=== PATIENT | female | born 1950 | race Caucasian/White ===

== ENCOUNTER 2017-09-20 17:25 | Emergency (ER) | payer MEDICARE, MEDICAID ==
[~2017-09-20] VITALS: Ht 162.6 cm; Wt 74.8 kg
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
--- NOTE | 2017-09-20 17:40 | NUR ---
AT BEDSIDE FOR EVAL.
[2017-09-20] MEDS ORDERED: ACETAMINOPHEN 325 MG TABLET ONE (17:42)
--- NOTE | 2017-09-20 17:47 | NUR ---
IV ACCESS NOT REQUIRED PER DR. DUCKWORTH.
[2017-09-20] MEDS ORDERED: ACETAMINOPHEN 325 MG TABLET PO ONE (18:00)
[2017-09-20 18:02] LABS: BASOPHILS # (AUTO) 0.2 /CMM (0.0-0.2); BASOPHILS % (AUTO) 1.4 % (0.0-2.0); EOSINOPHILS % (AUTO) 0.5 % (0.0-6.0); HEMATOCRIT 48 % (33-45); HEMOGLOBIN 16.3 g/dL (11.5-14.8); LYMPHOCYTES # (AUTO) 3.2 /CMM (0.8-4.8); LYMPHOCYTES % (AUTO) 22.9 % (20.0-44.0); MEAN CORPUSCULAR HGB CONC 34 g/dl (31.0-36.0); MEAN CORPUSCULAR VOLUME 84 fL (82-100); MONOCYTES % (AUTO) 7.4 % (2.0-12.0); NEUTROPHILS # (AUTO) 9.4 /CMM (1.8-8.9); NEUTROPHILS % (AUTO) 67.8 % (43.0-81.0); PLATELET COUNT (AUTO) 245 /CMM (150-450); RDW COEFFICIENT OF VARIATION 13.3 (11.5-15.0); RED BLOOD CELL COUNT(AUTO) 5.72 MIL/uL (4.0-5.2); WHITE BLOOD COUNT (AUTO) 13.9 K/uL (4.3-11.0)
--- NOTE | 2017-09-20 18:10 | NUR ---
RECREATIONAL VEHICLE REPAIRER AT BEDSIDE.
[2017-09-20 18:11] LABS: CALCIUM, SERUM 9.9 mg/dL (8.5-10.1); CARBON DIOXIDE 23 mmol/L (21-32); CHLORIDE 99 mmol/L (98-107); CREATININE 1.1 mg/dL (0.6-1.3); GLUCOSE 157 mg/dL (74-106); SODIUM SERUM 135 mmol/L (136-145); UREA NITROGEN, BLOOD 30 mg/dL (7-18)
[2017-09-20 18:17] LABS: INR 0.89 (0.85-1.15)
[2017-09-20 18:20] LABS: TROPONIN I < 0.017 ng/mL (0.00-0.056)
--- NOTE | 2017-09-20 18:50 | NUR ---
PATIENT TAKEN TO CT VIA WHEELCHAIR.
[2017-09-20] MEDS ORDERED: KETOROLAC TROMETHAMINE INJ 60 MG/2 ML VIAL IM ONE ×2 (18:59→19:00)
[2017-09-20] MEDS ORDERED: HYDROCODONE/APAP 5/325MG 1 EACH TABLET ONE (18:59)
[2017-09-20] MEDS ORDERED: HYDROCODONE/APAP 5/325MG 1 EACH TABLET PO ONE (19:00)
--- NOTE | 2017-09-20 19:00 | NUR ---
PATIENT RETURNED FROM CT IN STABLE CONDITION
--- NOTE | 2017-09-20 19:05 | NUR ---
MEDICATED PATIENT PER MD ORDERS.
--- NOTE | 2017-09-20 19:16 | NUR ---
REPORT GIVEN TO ALFONSO CARVER FOR FRANCISCA.
--- NOTE | 2017-09-20 19:17 | NUR ---
REPORT RECEIVED FROM WEN LAMB FOR FRANCISCA.
[2017-09-20] MEDS ORDERED: ONDANSETRON 4 MG TAB.RAPDIS ONE (19:33)
--- NOTE | 2017-09-20 19:36 | NUR ---
MD AT BEDSIDE SPEAKING WITH THE PATIENT.
--- NOTE | 2017-09-20 19:44 | NUR ---
Patient discharged with family to home in stable condition. Written and verbal after care instructions given, instructed not to drive. Patient verbalizes understanding of instruction.
[2017-09-20 19:46] VITALS: BP 116/67
[2017-09-20] MEDS ORDERED: ONDANSETRON 4 MG TAB.RAPDIS PO ONE (20:00)
== END 2017-09-20 19:47 | disposition home or self-care (01) ==
LOC: ER 17:32
DX: S20.211A Contusion of right front wall of thorax, initial encounter (principal); R42 Dizziness and giddiness; I10 Essential (primary) hypertension; E11.9 Type 2 diabetes mellitus without complications; Z88.6 Allergy status to analgesic agent; Z88.8 Allergy status to other drugs, medicaments and biological substances; W17.89XA Other fall from one level to another, initial encounter; Y93.89 Activity, other specified; Y92.89 Other specified places as the place of occurrence of the external cause; Y99.8 Other external cause status
CPT/HCPCS: 36415; 70450-TC; 71045-TC; 71100-TC; 80048-TC; 84484-TC; 85025-TC; 85730-TC; A4606; J1885; Q0162; Z7610

== ENCOUNTER 2025-01-31 13:08 | Inpatient (IN) | payer MEDICARE, OTHER ==
[~2025-01-31] VITALS: Ht 165.1 cm; Wt 96.2 kg
[2025-01-31] MEDS: IV NS 0.9% 1,000 ML BAG IV ONE (13:30)
[2025-01-31] MEDS ORDERED: ACETAMINOPHEN ES 500 MG TABLET ONE (13:32)
[2025-01-31] MEDS: ACETAMINOPHEN ES 500 MG TABLET PO ONE (14:26)
[2025-01-31] MEDS ORDERED: ONDANSETRON HCL/PF 4 MG/2 ML VIAL ONE (14:58)
[2025-01-31] MEDS: ONDANSETRON HCL/PF 4 MG/2 ML VIAL IV ONE (15:28)
[2025-01-31] MEDS: IV NS 0.9% 500 ML BAG IV ONE (15:28)
[2025-01-31] MEDS ORDERED: ACETAMINOPHEN 325 MG TABLET PO ONE (15:30)
[2025-01-31 16:29] LABS: PLATELET COUNT (AUTO) 201 K/uL (150-450); RED BLOOD CELL COUNT(AUTO) 5.15 MIL/uL (4.0-5.2); RED CELL DISTRIBUTION WIDTH 15.3 % (11.5-15.0); WHITE BLOOD COUNT (AUTO) 13.1 K/uL (4.3-11.0)
[2025-01-31 16:41] LABS: CALCIUM, SERUM 9.4 mg/dL (8.5-10.1); CREATININE 1.5 mg/dL (0.6-1.3); SODIUM SERUM 138 mmol/L (136-145); UREA NITROGEN, BLOOD 32 mg/dL (7-18)
[2025-01-31 16:54] LABS: ASPARTATE AMINOTRANSFERASE 31 U/L (15-37); NT-PRO BNP 2111 pg/mL (0-125); TOTAL PROTEIN, SERUM 7.0 g/dL (6.4-8.2)
[2025-01-31] MEDS ORDERED: EMPA25TA PO (18:12)
[2025-01-31] MEDS ORDERED: LINA290C PO (18:12)
[2025-01-31] MEDS ORDERED: PANT40TA49 PO (18:12)
[2025-01-31] MEDS ORDERED: METO100C PO (18:12)
[2025-01-31] MEDS ORDERED: POTA20TA83 PO (18:12)
[2025-01-31] MEDS ORDERED: GABA800T11 PO (18:12)
[2025-01-31] MEDS ORDERED: AMIO200T5 PO (18:12)
[2025-01-31] MEDS ORDERED: MOUNJARO SQ (18:12)
[2025-01-31] MEDS ORDERED: METF-442 PO (18:12)
[2025-01-31] MEDS ORDERED: ANAS1TAB50 PO (18:12)
[2025-01-31] MEDS ORDERED: BUME1TAB8 PO (18:12)
[2025-01-31] MEDS ORDERED: DEXTROSE 50%-WATER 50 ML DISP.SYRIN IV PRN (18:30)
[2025-01-31] MEDS ORDERED: POTASSIUM CHLORIDE 20 MEQ TAB.PRT.SR PO PRN (18:30)
[2025-01-31 20:00] VITALS: BP 97/55; TEMP 97.7; O2SAT 98
[2025-01-31] MEDS: METOPROLOL SUCCINATE 50 MG TAB.SR.24H PO SCH (20:00)
[2025-01-31] MEDS: ENOXAPARIN SODIUM 30 MG/0.3 ML DISP.SYRIN SQ SCH (20:03)
[2025-01-31] MEDS: PANTOPRAZOLE 40 MG TABLET.DR PO PRN (20:10)
[2025-01-31] MEDS: FUROSEMIDE 40 MG/4 ML VIAL IV SCH (20:30)
[2025-01-31] MEDS: ONDANSETRON HCL/PF 4 MG/2 ML VIAL IVP PRN (21:07)
[2025-01-31] MEDS: ATORVASTATIN 10 MG TABLET PO SCH (21:43)
[2025-01-31] MEDS: BLOOD SUGAR DIAGNOSTIC 1 EACH STRIP IN SCH (21:51)
[2025-01-31] MEDS: INSULIN REGULAR, HUMAN 100 UNIT/ML 3 ML VIAL SQ PRN (21:52)
[2025-01-31] MEDS: FENTANYL PF 100MCG/2ML AMPUL IV ONE (23:53)
[2025-02-01] VITALS (8 sets, daily range): BP systolic 97–120; BP diastolic 50–66; TEMP 97.4–98.2; O2SAT 95–100
[2025-02-01] MEDS: HYDROMORPHONE 1 MG/1 ML DISP.SYRIN IV PRN (03:12)
[2025-02-01] MEDS: ASPIRIN 81 MG TAB.CHEW PO SCH (09:00)
[2025-02-01] MEDS: AMIODARONE HCL 200 MG TABLET PO SCH (09:00)
[2025-02-01] MEDS: ANASTROZOLE 1 MG TABLET PO SCH (09:00)
[2025-02-01 09:04] LABS: SODIUM SERUM 141 mmol/L (136-145)
[2025-02-01 09:05] LABS: CALCIUM, SERUM 9.7 mg/dL (8.5-10.1); CREATININE 1.8 mg/dL (0.6-1.3); PHOSPHORUS 6.0 mg/dL (2.5-4.9); UREA NITROGEN, BLOOD 45 mg/dL (7-18)
[2025-02-01 09:07] LABS: PLATELET COUNT (AUTO) 223 K/uL (150-450); RED BLOOD CELL COUNT(AUTO) 4.91 MIL/uL (4.0-5.2); RED CELL DISTRIBUTION WIDTH 15.5 % (11.5-15.0); WHITE BLOOD COUNT (AUTO) 12.5 K/uL (4.3-11.0)
[2025-02-01 10:24] LABS: LDL 98 mg/dL (0-99)
[2025-02-01 13:18] LABS: APPEARANCE,URINE CLEAR (CLEAR); BLOOD, URINE NEGATIVE Ery/uL (NEGATIVE); LEUKOCYTE ESTERASE ,URINE NEGATIVE (NEGATIVE); NITRITE, URINE NEGATIVE (NEGATIVE); UGLUCOSE 2+ mg/dL (NEGATIVE)
[2025-02-01 13:25] LABS: CREATININE, URINE 162.3 MG/DL (30.0-125.0); URINE SODIUM, RANDOM 6.0 mmol/l (40-220); URINE TOTAL PROTEIN 39.0 mg/dL (0-11.9)
[2025-02-01 13:39] LABS: ADD URINE CULTURE YES; CALCIUM OXALATE CRYSTALS,UR Few /HPF (None Seen); SQUAMOUS EPITHELIAL CELL,UR Few /HPF (None Seen)
[2025-02-01 14:31] LABS: EOSINOPHIL,URINE None Seen
[2025-02-02] VITALS (9 sets, daily range): BP systolic 102–200; BP diastolic 58–90; TEMP 97.5–98.6; O2SAT 93–97
[2025-02-02 06:38] LABS: PLATELET COUNT (AUTO) 170 K/uL (150-450); RED BLOOD CELL COUNT(AUTO) 4.53 MIL/uL (4.0-5.2); RED CELL DISTRIBUTION WIDTH 15.4 % (11.5-15.0); WHITE BLOOD COUNT (AUTO) 7.0 K/uL (4.3-11.0)
[2025-02-02 06:44] LABS: ASPARTATE AMINOTRANSFERASE 26.0 U/L (15-37); CALCIUM, SERUM 9.1 mg/dL (8.5-10.1); CREATININE 0.8 mg/dL (0.6-1.3); PHOSPHORUS 3.4 mg/dL (2.5-4.9); SODIUM SERUM 140.0 mmol/L (136-145); TOTAL PROTEIN, SERUM 6.0 g/dL (6.4-8.2); UREA NITROGEN, BLOOD 34.0 mg/dL (7-18)
[2025-02-02 07:39] LABS: CREATINE KINASE, TOTAL 21.0 U/L (26-192)
[2025-02-02] MEDS: CLOTRIMAZOLE/BETAMETASONE DIPROPIONATE 15 GM TUBE TP SCH (08:54)
[2025-02-02] MEDS: NITROGLYCERIN 0.4 MG/TAB BOTTLE SL PRN (12:39)
[2025-02-02] MEDS: HYDROMORPHONE 1 MG/1 ML DISP.SYRIN IV PRN (20:50)
[2025-02-03] VITALS: BP 112/57; TEMP 98.2; O2SAT 98
[2025-02-03 05:00] VITALS: BP 132/63; TEMP 98.6; O2SAT 98
[2025-02-03 06:53] LABS: PLATELET COUNT (AUTO) 159 K/uL (150-450); RED BLOOD CELL COUNT(AUTO) 4.40 MIL/uL (4.0-5.2); RED CELL DISTRIBUTION WIDTH 15.0 % (11.5-15.0); WHITE BLOOD COUNT (AUTO) 5.7 K/uL (4.3-11.0)
[2025-02-03 07:20] LABS: CALCIUM, SERUM 9.3 mg/dL (8.5-10.1); CREATININE 0.8 mg/dL (0.6-1.3); PHOSPHORUS 2.9 mg/dL (2.5-4.9); SODIUM SERUM 140.0 mmol/L (136-145); UREA NITROGEN, BLOOD 27.0 mg/dL (7-18)
[2025-02-03 07:30] VITALS: BP 134/66; TEMP 98.1; O2SAT 98
[2025-02-03 08:06] LABS: EOSINOPHILS % (MANUAL) 1 % (0-4); LYMPHOCYTES % (MANUAL) 29 % (16-48); MONOCYTES % (MANUAL) 10 % (0-11.0); NEUTROPHILS % (MANUAL) 60 (42-76); PLATELET ESTIMATE ADEQUATE
[2025-02-03 08:07] LABS: PTH, INTACT 65 pg/mL (15-65)
[2025-02-03 16:00] VITALS: BP 122/75; TEMP 98.4; O2SAT 96
[2025-02-03] MEDS: FUROSEMIDE 20 MG/2 ML VIAL IV SCH (18:23)
[2025-02-03 20:00] VITALS: BP 140/61; TEMP 98.1; O2SAT 96
[2025-02-04] VITALS: BP 136/72; TEMP 97.9; O2SAT 96
[2025-02-04] MEDS: GABAPENTIN 400 MG CAPSULE PO PRN (01:34)
[2025-02-04 04:00] VITALS: BP 122/59; TEMP 97.9; O2SAT 96
[2025-02-04 07:22] LABS: PLATELET COUNT (AUTO) 177 K/uL (150-450); RED BLOOD CELL COUNT(AUTO) 4.63 MIL/uL (4.0-5.2); RED CELL DISTRIBUTION WIDTH 14.9 % (11.5-15.0); WHITE BLOOD COUNT (AUTO) 7.0 K/uL (4.3-11.0)
[2025-02-04 07:45] LABS: CALCIUM, SERUM 9.3 mg/dL (8.5-10.1); CREATININE 0.8 mg/dL (0.6-1.3); PHOSPHORUS 2.7 mg/dL (2.5-4.9); SODIUM SERUM 139.0 mmol/L (136-145); UREA NITROGEN, BLOOD 23.0 mg/dL (7-18)
[2025-02-04 08:00] VITALS: BP 122/68; TEMP 97.5; O2SAT 96
[2025-02-04] MEDS: MAGNESIUM OXIDE 400 MG TABLET PO ONE (12:18)
[2025-02-04 16:00] VITALS: BP 122/61; TEMP 98.2; O2SAT 98
[2025-02-04] MEDS: ACETAMINOPHEN 325 MG TABLET PO PRN (18:01)
[2025-02-04 20:00] VITALS: BP 106/66; TEMP 97.9; O2SAT 92
[2025-02-04 20:50] VITALS: BP 106/66; TEMP 97.9; O2SAT 92
[2025-02-05] VITALS: BP 113/66; TEMP 98.1; O2SAT 94
[2025-02-05 04:00] VITALS: BP 133/75; TEMP 98.1; O2SAT 93
[2025-02-05 08:00] VITALS: BP 138/74; TEMP 97.7; O2SAT 96
[2025-02-05 08:14] LABS: CALCIUM, SERUM 9.5 mg/dL (8.5-10.1); CREATININE 0.8 mg/dL (0.6-1.3); PHOSPHORUS 3.0 mg/dL (2.5-4.9); SODIUM SERUM 139.0 mmol/L (136-145); UREA NITROGEN, BLOOD 26.0 mg/dL (7-18)
[2025-02-05 12:00] VITALS: BP 117/63; TEMP 97.9; O2SAT 96
[2025-02-05 16:00] VITALS: BP 132/74; TEMP 97.9; O2SAT 96
[2025-02-05 20:02] VITALS: BP 99/54; TEMP 98.4; O2SAT 94
[2025-02-06] VITALS (7 sets, daily range): BP systolic 113–127; BP diastolic 67–76; TEMP 98–99; O2SAT 94–98
[2025-02-06 11:05] LABS: CALCIUM, SERUM 9.8 mg/dL (8.5-10.1); CREATININE 0.7 mg/dL (0.6-1.3); SODIUM SERUM 138.0 mmol/L (136-145); UREA NITROGEN, BLOOD 25.0 mg/dL (7-18)
[2025-02-06] MEDS: LACTULOSE 10 G/15 ML UDC (PYXIS) PR ONE (12:18)
[2025-02-06] MEDS ORDERED: ASPI-1169 PO (15:16)
[2025-02-06] MEDS ORDERED: ATOR10TA PO (15:16)
[2025-02-06] MEDS ORDERED: BUME1TAB8 PO (15:53)
[2025-02-06] MEDS ORDERED: ISOS30TA86 PO (15:53)
== END 2025-02-07 | disposition home health service (06) | DRG 291 ==
LOC: ER 13:19 → TELE 15:51
PROVIDERS: ADMIT Nurse Practitioner Acute Care; ATTEND Nurse Practitioner Acute Care
DX: I13.0 Hypertensive heart and chronic kidney disease with heart failure and stage 1 through stage 4 chronic kidney disease, or unspecified chronic kidney disease (principal); I50.43 Acute on chronic combined systolic (congestive) and diastolic (congestive) heart failure; N17.0 Acute kidney failure with tubular necrosis; D68.59 Other primary thrombophilia; Q21.0 Ventricular septal defect; I25.110 Atherosclerotic heart disease of native coronary artery with unstable angina pectoris; M89.8X9 Other specified disorders of bone, unspecified site; I48.91 Unspecified atrial fibrillation; N18.9 Chronic kidney disease, unspecified; Z53.20 Procedure and treatment not carried out because of patient's decision for unspecified reasons; E11.22 Type 2 diabetes mellitus with diabetic chronic kidney disease; E11.51 Type 2 diabetes mellitus with diabetic peripheral angiopathy without gangrene; E78.5 Hyperlipidemia, unspecified; Z95.820 Peripheral vascular angioplasty status with implants and grafts; Z95.0 Presence of cardiac pacemaker; Z88.5 Allergy status to narcotic agent; Z91.041 Radiographic dye allergy status; Z79.899 Other long term (current) drug therapy; Z79.84 Long term (current) use of oral hypoglycemic drugs; Z79.811 Long term (current) use of aromatase inhibitors; E86.0 Dehydration; L30.4 Erythema intertrigo; J32.9 Chronic sinusitis, unspecified; Z90.49 Acquired absence of other specified parts of digestive tract; E66.9 Obesity, unspecified; Z68.35 Body mass index [BMI] 35.0-35.9, adult; Z98.890 Other specified postprocedural states; Z87.74 Personal history of (corrected) congenital malformations of heart and circulatory system; D72.829 Elevated white blood cell count, unspecified
CPT/HCPCS: 31720; 36415; 70450-TC; 71045-TC; 76700-TC; 80048-TC; 80053-TC; 80061-TC; 80076-TC; 81001; 82550-TC; 82570-TC; 82962-TC; 83690-TC; 83735-TC; 83880; 83970; 84100-TC; 84155; 84165; 84300-TC; 84484-TC; 85025-TC; 85027-TC; 87086-TC; 93307-TC; 93970-TC; 94640-TC; 94799-TC; 97110-TC; 97116-TC; 97530-TC; G0378; J1171; J1650; J1815; J1938; J2405; J2919; J3010